=== PATIENT | female | born 1940 | race Caucasian/White ===

== ENCOUNTER 2017-11-17 00:35 | Inpatient (IN) | payer OTHER, MEDICARE ==
[~2017-11-17] VITALS: Ht 162.6 cm; Wt 89.4 kg
[~2017-11-17 00:35] MED LIST: FLONASE ALLERG9.9 ML NASB; LEXAPRO20 M1 PO; LOSARTAN-HCTZ1 EAC2 PO; PROAIR HFA8.5 GM INH; TRAZODONE HCL50 M1 PO; ZOCOR40 M1 PO
[2017-11-17] MEDS ORDERED: ASPIRIN EC81 M1 PO (14:24)
[2017-11-17] MEDS ORDERED: MIRALAX17 G1 PO (14:24)
[2017-11-17] MEDS ORDERED: DILAUDID2 M1 PO (14:24)
[2017-11-17] MEDS ORDERED: COLACE100 M1 PO (14:24)
--- NOTE | 2017-11-17 14:26 | Patient Discharge Instructions ---
Discharge Instructions General Discharge Information You were seen/treated for: Left knee osteoarthritis You had these procedures: Left total knee arthroplasty Watch for these problems: Fever of 100.4 Redness and swelling around wound Drainage from wound Unable to bear weight on left leg Chest pain or shortness of breath No bath, but you may shower: Yes Other wound care: Daily dry dressing change Keep incision clean and dry Diet Continue normal diet: Yes Activity Activity Limited to: Weight bear as tolerated (with rolling walker) Acute Coronary Syndrome Inclusion Criteria At DC or during hospital stay patient has or had the following: ACS DIAGNOSIS No Discharge Core Measures Meds if any: Prescribed or Continued at Discharge Meds if any: NOT Prescribed or Continued at Discharge Congestive Heart Failure Inclusion Criteria At DC or during hospital stay patient has or had the following: CHF DIAGNOSIS No Discharge Core Measures Meds if any: Prescribed or Continued at Discharge Meds if any: NOT Prescribed or Continued at Discharge Cerebrovascular accident Inclusion Criteria At DC or during hospital stay patient has or had the following: CVA/TIA Diagnosis No Discharge Core Measures Meds if any: Prescribed or Continued at Discharge Meds if any: NOT Prescribed or Continued at Discharge Venous thromboembolism Inclusion Criteria VTE Diagnosis No VTE Type NONE VTE Confirmed by (Test) NONE Discharge Core Measures - Per Current guidelines, there needs to be overlap - treatment for the first 5 days of Warfarin therapy. - If discharged on Warfarin prior to 5 days of - overlap therapy, the patient will need to be - assessed for post discharge needs including - *Post discharge parental anticoagulation - *Warfarin and/or parental anticoagulation education - *Follow up date to check INR post discharge At least 5 days overlap therapy as Inpatient No Meds if any: Prescribed or Continued at Discharge Note: Overlap Therapy is Warfarin and Anticoagulant Meds if any: NOT Prescribed or Continued at Discharge
--- NOTE | 2017-11-17 14:28 | Admission Core Measures ---
Acute Coronary Syndrome (CM) ACS Core Measures Acute Coronary Syndrome Diagnosis No Congestive Heart Failure (NEW) CHF Core Measures Congestive Heart Failure Diagnosis No Cerebrovascular Accident CVA Core Measures CVA/TIA Diagnosis No Venous Thromboembolism VTE Core Segundo (View Protocol) VTE Risk Factors Surgery No Mechanical VTE Prophylaxis d/t N/A MechProphylax Ordered No VTE Pharm Prophylaxis d/t NA PharmProphylax ordered Problem List As ranked by this Provider includes Assessment & Plan 1. Unilateral primary osteoarthritis, left knee HOME MEDS Home Med List Albuterol Sulfate (Proair Hfa) 90 MCG HFA.AER.AD 2 PUF INH Q4-6 PRN PRN ASTHMA (Reported) Aspirin (Ecotrin*) 81 MG TABLET.DR 1 TAB PO DAILY DVT PPX Docusate Sodium (Colace) 100 MG CAPSULE 1 CAP PO BID STOOL SOFTENER Escitalopram Oxalate (Lexapro) 20 MG TABLET 1 TAB PO DAILY ANXIETY (Reported) Fluticasone Propionate (Flonase Allergy Relief) 50 MCG/ACTUATION SPRAY.SUSP 2 INH NASB DAILY NEEDED PRN ALLERGIES (Reported) Hydromorphone HCl (Dilaudid) 2 MG TABLET 1-2 TAB PO Q4-6 PRN PRN PAIN Losartan/Hydrochlorothiazide (Losartan-Hctz 100-25 MG Tab) 100 MG-25 MG TABLET 1 TAB PO DAILY BP (Reported) Polyethylene Glycol 3350 (Miralax) 17 GRAM POWD.PACK 1 PAC PO DAILY CONSTIPATION Simvastatin (Zocor*) 40 MG TABLET 1 TAB PO DAILY CHOLESTEROL (Reported) Trazodone HCl 50 MG TABLET 2 TAB PO QPM SLEEP (Reported)
--- NOTE | 2017-11-17 14:29 | Surgical Discharge Summary ---
Visit Information Visit Dates Admission Date: 11/17/17 Discharge Date: 11/19/17 History of Present Illness Chief Complaint: Left knee pain Surgical History Pertinent Surgical History: non-contributory Review of Systems: As per [facility] Hospital Course Course Attending Physician: Homer Swanson MD Primary Care Physician: Glory Alvares MD Hospital Course: Patient tolerated procedure well. Postoperatively she was tolerating a regular diet, voiding spontaneously, pain was well managed, she was ambulating with physical therapy using rolling walker. Patient was cleared for discharge. Discharge instructions were reviewed with the patient and she understood. She was given instructions to follow-up with Dr. Swanson in 6 weeks and to call his office sooner with any questions or concerns. Complications: None Allergies: Coded Allergies: No Known Allergies (11/15/17) Significant Procedures: Left total knee arthroplasty Disposition Summary Disposition Principal Diagnosis: Left knee osteoarthritis Additional Diagnosis: Same Discharge Disposition: home health services Discharge Instructions General Discharge Information Code Status: Full Code Patient's Diet: Regular Patient's Activity: Weight-bear as tolerated using rolling walker Follow-Up Instructions/Appts: Follow-up with Dr. Swanson in 6 weeks staple removal in 2 weeks Medications at Discharge Discharge Medications: Start taking the following new medications: Aspirin (Ecotrin*) 81 MG TABLET.DR 1 Tablet ORAL DAILY Qty = 60 No Refills Docusate Sodium (Colace) 100 MG CAPSULE 1 Capsule ORAL TWICE DAILY Qty = 14 No Refills Instructions: STOP TAKING IF YOU DEVELOP LOOSE STOOL/DIARRHEA Hydromorphone HCl (Dilaudid) 2 MG TABLET 1-2 Tablet ORAL EVERY 4-6 HOURS NEEDED as needed for PAIN Qty = 36 No Refills Polyethylene Glycol 3350 (Miralax) 17 GRAM POWD.PACK 1 Packet ORAL DAILY Qty = 7 No Refills Instructions: dissolve in water. STOP TAKING IF YOU DEVELOP LOOSE STOOL/DIARRHEA Copies To: [employer],Glory Chinchilla
--- NOTE | 2017-11-17 15:36 | Operative Report ---
Operative/Inv Procedure Report Surgery Date: 11/17/17 Name of Procedure: 1. Left total knee replacement 2. Right knee cortisone injection Pre-Operative Diagnosis: Primary bilateral knee DJD Post-Operative Diagnosis: Same Estimated Blood Loss: 50ml to 100ml Surgeon/Gas Adjuster: [employer],Homer Costa Anesthesia: block Operative/Procedure Note Note: Description of Procedure: The patient was taken to the operating room and positively identified. After induction of spinal anesthesia and administration of appropriate pre-operative antibiotics, the patient was positioned supine on the operating room table and all bony prominences were well padded. The right knee was prepped sterilely and injected with a mixture of 2 mL of Depo -Medrol and 6 mL of half percent Marcaine. A Band-Aid was placed over the injection site. Attention was then turned to the left lower extremity. A well-padded pneumatic tourniquet was placed on the left upper thigh. After performing a surgical timeout, the left lower extremity was prepped and draped in the usual sterile fashion. After exsanguination with Esmarch the tourniquet was inflated to 250mm of mercury. A standard medial parapatellar approach was made to the knee. This was carried down through skin and subcutaneous tissue to the level of the fascia. Meticulous hemostasis was maintained with Bovie electrocautery. The extensor mechanism and patellar retinaculum were opened sharply and the patella was everted. The infrapatellar fat was resected in order to improve exposure. Osteophytes were trimmed from the patella and femoral condyles and the patella was re-everted and tucked laterally. A medial release was performed and the cruciate ligaments were resected. The tibia was then subluxed anteriorly. Utilizing the appropriate extra-medullary guide, the proximal tibia was trimmed perpendicular to the long axis of the tibial shaft. Attention was then turned to the femur. After opening the medullary canal, the distal femoral cut was made in 6 degrees of valgus utilizing the appropriate intra-medullary guide. The extension gap was checked and found to be appropriate. The femur was then sized and the remainder of the femoral cuts were made with a size 3 4-in-1 femoral cutting guide. The flexion gap was checked and found to be symmetric and appropriate. The knee was then trialed with a size 3 femoral component, a size 3 tibial component and a size 13 mm polyethylene insert. The patella was trimmed to accept an A32 patella. This yielded excellent range of motion, stability and patellar tracking. All trial components were removed and the knee was copiously irrigated with sterile saline. All components were cemented into place with Maik Simplex cement. All the components were of the MonoLibre Triathlon knee system of the above stated sizes. The knee was again irrigated after cementation. The extensor mechanism and patellar retinaculum were repaired using interrupted #1 vicryl suture. The skin was re-approximated with 2-0 vicryl and closed with ej. A sterile dressing was applied, the tourniquet was deflated, the patient was awakened and taken to the recovery room in satisfactory condition.
--- NOTE | 2017-11-17 16:55 | PN- Orthopedic ---
Subjective Subjective: POC Pt recovering well in PACU, denies pain. Still with paresthesias from spinal. Tolerating ice chips No nausea Deneis CP/SOB/MONTOYA, fevers Objective Vital Signs and I&Os VSS, afebrile. HR 50bpm Physical Exam: gen- NAD resp-clear cardiac-mildly woody at 50bpm but regular abd- soft, NT ext- left leg wrapped in sera bandage, dressing clean and dry. 2+DP pulse Assessment/Plan Assessment/Plan 77yo F with hx of htn, hld, asthma and anxiety now here SP L TKA POD0. stable and recovering in PACU with no complaints. mildly bradycardic with HR 50bpm pain management IVF overnight dvt ppx- Alps and ASA 81mg BID FU AM labs PT-WBAT with rolling walker regular home meds dressing change POD2 DC planning- likely will stay 2 nights then home with services if cleared by PT Core Measures Venous Thromboembolism VTE Risk Factors Surgery No Mechanical VTE Prophylaxis d/t N/A MechProphylax Ordered No VTE Pharm Prophylaxis d/t NA PharmProphylax ordered
[2017-11-17 17:21] VITALS: BP 126/80
[2017-11-17 19:30] VITALS: BP 120/70
[2017-11-17 21:38] VITALS: BP 118/70
[2017-11-17 23:08] VITALS: BP 112/64
[2017-11-18 03:50] VITALS: BP 110/68
--- NOTE | 2017-11-18 07:26 | PN- Orthopedic ---
Subjective Subjective: Pt. has no complaints. Denies chest pain or SOB. States she is comfortable on " oral pills for pain" Has not ambulated yet Objective Vital Signs and I&Os Vital Signs Date Time Temp Pulse Resp B/P B/P Pulse O2 O2 Flow FiO2 Mean Ox Delivery Rate 11/18 0350 97.8 60 20 110/68 96 Nasal 2.0L Cannula 11/17 2308 98.6 68 20 112/64 95 11/17 2138 98.5 78 20 118/70 96 Nasal Cannula 11/17 1930 98.0 56 20 120/70 94 Nasal Cannula 11/17 1721 98.0 65 18 126/80 96 Nasal 2.0L Cannula 11/17 1720 Nasal 2.0L Cannula Intake & Output 11/18 0800 11/18 0000 11/17 1600 11/17 0800 11/17 0000 11/16 1600 Intake Total 615 Output Total 200 Balance 415 Intake, Oral 240 Intake, Other 375 Output, Urine 200 Alert, oriented, appropriate, looks comfortable Cor regular, rate 60's to 70's Lungs clear bilat Abdomen benign LLE with bandage on, dry.Calf supple, neurovascular check intact.Limited ROM at knee level, able to raise leg off the bed.Foot warm. Assessment/Plan Assessment/Plan s/p L TKA for primary DJD POD#1 Stable hemodynamics, HR WNL, no bradycardia L knee intact neurovascularly, well perfused, ROM as expected. Good pain control with oral Dilaudid. PT eval today/ mobility as tolerated. Will heplock IVF On baby ASA DVT prophylxis with ALPS Will check lab results today Dressing change tomorrow. Anticipate discharge home in 24 to 48 hrs with services. Core Measures Venous Thromboembolism VTE Risk Factors Surgery No Mechanical VTE Prophylaxis d/t N/A MechProphylax Ordered No VTE Pharm Prophylaxis d/t NA PharmProphylax ordered
[2017-11-18 08:36] VITALS: BP 98/78
[2017-11-18 09:22] LABS: ABSOLUTE BASOPHIL COUNT 0 /CUMM (0.0-0.2); ABSOLUTE EOSINOPHIL COUNT 0 /CUMM (0.0-0.7); ABSOLUTE GRANULOCYTE CT 15.6 /CUMM (1.4-6.5); ABSOLUTE LYMPH COUNT 0.8 /CUMM (1.2-3.4); ABSOLUTE MONOCYTE COUNT 0.7 /CUMM (0.10-0.60); BASOPHIL % 0.1 % (0.0-2.0); EOSINOPHIL % 0 % (0-5); GRANULOCYTE % 90.9 % (42.2-75.2); HEMATOCRIT 36.6 % (37-47); MEAN CORPUSCULAR HGB 29.1 PG (27.0-31.0); MEAN CORPUSCULAR HGB CONC 33.7 G/DL (33.0-37.0); MEAN CORPUSCULAR VOLUME 86.2 FL (81.0-99.0); MEAN PLATELET VOLUME 9.5 FL (7.4-10.4); PLATELET COUNT 203 /CUMM (130-400); RBC DISTRIBUTION WIDTH 14.2 % (11.5-14.5); RED BLOOD CELL CT 4.25 /CUMM (4.20-5.40)
[2017-11-18 10:38] LABS: WHITE BLOOD CELL COUNT 17.1 /CUMM (4.8-10.8)
[2017-11-18 14:52] VITALS: BP 100/65
[2017-11-18 21:00] VITALS: BP 124/70
[2017-11-19 05:47] VITALS: BP 130/78
--- NOTE | 2017-11-19 07:27 | PN- Orthopedic ---
See Addendum Subjective Subjective: Reports pain controlled with dilaudid. Reports some stiffness of the operative leg. No dizziness. No shortness of breath. No chest pains. Tolerating diet. No nausea. Voiding well. No bm yet, but feels like that's going to happen soon. She anticipates discharge to home soon. Objective Vital Signs and I&Os Vital Signs Date Time Temp Pulse Resp B/P B/P Pulse O2 O2 Flow FiO2 Mean Ox Delivery Rate 11/19 0547 99.1 73 20 130/78 96 Nasal 2.0L Cannula 11/19 0000 94 Nasal 2.0L Cannula 11/18 2100 98.4 70 24 124/70 94 Nasal 2.0L Cannula 11/18 1600 94 Room Air 11/18 1452 98.8 68 18 100/65 93 Room Air 11/18 1008 Room Air Room Air 11/18 0836 97.8 56 18 98/78 96 Nasal 1.0L Cannula 11/18 0800 97 Nasal 2.0L Cannula Intake & Output 11/19 0800 11/19 0000 11/18 1600 11/18 0800 11/18 0000 11/17 1600 Intake Total 401 286 1060 615 Output Total 300 396 189 6429 200 Balance -60 -400 80 80 415 Intake, IV 600 Intake, Oral 240 480 480 240 Intake, Other 375 Number 0 Bowel Movements Output, Urine 300 036 638 1082 200 Physical Exam: General - alert & oriented x 3. comfortable. no acute distress. Lungs - clear bilaterally. no w/r/r. Cardiac - s1s2. reg. Abdomen - soft. nontender. Extremities - warm bilaterally. left knee dressing changed. incision well approximated with ej. no erythema or exudates. calves soft and nontender b/ l. nvi. athrombics in place. Current Medications: Current Medications Sig/Mitchell Start time Last Medication Dose Route Stop Time Status Admin Acetaminophen 1,000 MG Q6 11/17 1800 DC 11/18 IV 11/18 1201 1127 Albuterol Sulfate 2 PUF Q4 PRN 11/19 0730 UNVr INH Albuterol Sulfate 2 PUF Q4-6 PRN PRN 11/17 1730 AC INH Aspirin 81 MG BID 11/17 2100 AC 11/18 PO 2041 Atorvastatin Calcium 20 MG 1700 11/18 1700 AC 11/18 PO 1634 Docusate Sodium 100 MG BID 11/17 2099 AC 11/18 PO 2040 Escitalopram Oxalate 10 MG DAILY 11/18 899 DC PO Escitalopram Oxalate 10 MG DAILY 11/18 899 AC 11/18 PO 951 Hydrochlorothiazide 25 MG DAILY 11/18 899 AC 11/18 PO 52 Hydromorphone HCl 2 MG Q4P PRN 11/17 1730 AC 11/18 PO 1253 Hydromorphone HCl 4 MG Q4P PRN 11/17 1729 AC 11/19 PO 0541 Morphine Sulfate 2 MG Q2P PRN 11/17 1729 AC IV Ondansetron HCl 4 MG Q6P PRN 11/17 1729 AC IV Polyethylene Glycol 17 GM DAILY 11/18 899 AC 11/18 PO 951 Trazodone HCl 100 MG QPM 11/17 2099 AC 11/18 PO 2040 Results Last 48 Hours of Labs: Laboratory Tests 11/19 811 Chemistry Sodium (137 - 145 mmol/L) 135 L Potassium (3.5 - 5.1 mmol/L) 3.8 Chloride (98 - 107 mmol/L) 103 Carbon Dioxide (22 - 30 mmol/L) 25 Anion Gap (5 - 16) 8 BUN (7 - 17 mg/dL) 12 Creatinine (0.5 - 1.0 mg/dL) 0.4 L Estimated GFR (>60 ml/min) > 60 BUN/Creatinine Ratio (7 - 25 %) 30.0 H Hematology CBC w Diff NO MAN DIFF REQ WBC (4.8 - 10.8 /CUMM) 17.1 H RBC (4.20 - 5.40 /CUMM) 4.25 Hgb (12.0 - 16.0 G/DL) 12.4 Hct (37 - 47 %) 36.6 L MCV (81.0 - 99.0 FL) 86.2 MCH (27.0 - 31.0 PG) 29.1 MCHC (33.0 - 37.0 G/DL) 33.7 RDW (11.5 - 14.5 %) 14.2 Plt Count (130 - 400 /CUMM) 203 MPV (7.4 - 10.4 FL) 9.5 Gran % (42.2 - 75.2 %) 90.9 H Lymphocytes % (20.5 - 51.1 %) 4.9 L Monocytes % (1.7 - 9.3 %) 4.1 Eosinophils % (0 - 5 %) 0 Basophils % (0.0 - 2.0 %) 0.1 Absolute Granulocytes (1.4 - 6.5 /CUMM) 15.6 H Absolute Lymphocytes (1.2 - 3.4 /CUMM) 0.8 L Absolute Monocytes (0.10 - 0.60 /CUMM) 0.7 H Absolute Eosinophils (0.0 - 0.7 /CUMM) 0 Absolute Basophils (0.0 - 0.2 /CUMM) 0 Assessment/Plan Assessment/Plan This 77 year old female with hx asthma, htn, hld, anxiety, is POD#2 s/p L TKA for primary DJD tolerating diet pain controlled dressing changed continue PT. stairs today? f/u labs continue asa bid - dvt ppx bowel regime in place anticipate discharge home today vs tomorrow will f/u PT eval, and d/w pillowcase cutter to d/w Core Measures Venous Thromboembolism VTE Risk Factors Surgery No Mechanical VTE Prophylaxis d/t N/A MechProphylax Ordered No VTE Pharm Prophylaxis d/t NA PharmProphylax ordered
[2017-11-19] MEDS ORDERED: RW (07:34)
[2017-11-19 08:28] LABS: ABSOLUTE BASOPHIL COUNT 0.1 /CUMM (0.0-0.2); ABSOLUTE EOSINOPHIL COUNT 0.1 /CUMM (0.0-0.7); ABSOLUTE GRANULOCYTE CT 12.5 /CUMM (1.4-6.5); ABSOLUTE LYMPH COUNT 1.5 /CUMM (1.2-3.4); ABSOLUTE MONOCYTE COUNT 1.6 /CUMM (0.10-0.60); BASOPHIL % 0.3 % (0.0-2.0); EOSINOPHIL % 0.9 % (0-5); GRANULOCYTE % 78.7 % (42.2-75.2); HEMATOCRIT 34.5 % (37-47); MEAN CORPUSCULAR HGB CONC 33.7 G/DL (33.0-37.0); MEAN CORPUSCULAR VOLUME 86.1 FL (81.0-99.0); PLATELET COUNT 191 /CUMM (130-400); RBC DISTRIBUTION WIDTH 14.1 % (11.5-14.5); RED BLOOD CELL CT 4.01 /CUMM (4.20-5.40); WHITE BLOOD CELL COUNT 15.9 /CUMM (4.8-10.8)
[2017-11-19] MEDS ORDERED: ASPIRIN EC81 M1 PO (11:07)
== END 2017-11-19 12:45 | disposition home health service (06) | DRG 470 ==
LOC: SDA 00:35 → 2NA 00:35 → ENRESERV 15:36 → ENTRNSPT 16:53 → EDTRNSPTSTS 17:00 → EDTRNSPT 17:00 → 2NA 17:08 → CMPTRNSPT 17:21 → ENPENDDIS 11-19 07:54 → 2NA 11-19 12:45
PROVIDERS: Nurse Practitioner; Physician Assistant Surgical
PROC: 0SRD0J9 Replacement of Left Knee Joint with Synthetic Substitute, Cemented, Open Approach (ICD-10-PCS; principal; 2017-11-17)
PROC: 3E0U3BZ Introduction of Anesthetic Agent into Joints, Percutaneous Approach (ICD-10-PCS; principal; 2017-11-17)
PROC: 3E0U33Z Introduction of Anti-inflammatory into Joints, Percutaneous Approach (ICD-10-PCS; principal; 2017-11-17)
PROC: 3E0T3BZ Introduction of Anesthetic Agent into Peripheral Nerves and Plexi, Percutaneous Approach (ICD-10-PCS; principal; 2017-11-17)
DX: M17.0 Bilateral primary osteoarthritis of knee (principal); E66.9 Obesity, unspecified; Z68.30 Body mass index [BMI] 30.0-30.9, adult; J45.909 Unspecified asthma, uncomplicated; I10 Essential (primary) hypertension; Z79.51 Long term (current) use of inhaled steroids
CPT/HCPCS: 2NAP; 36592; 82436; 97110-GO; 97116-GO; 97161-GP; 97530-GO; C1713; C9290; J0131; J0690; J3490; J7042